=== PATIENT | male | born 1960 | race Two or more races ===

== ENCOUNTER 2018-04-06 02:14 | Inpatient (IN) | payer OTHER ==
[~2018-04-06] VITALS: Ht 177.8 cm; Wt 88.5 kg
[2018-04-06] MEDS ORDERED: LORAZEPAM INJ 2 MG/ML VIAL IVP ONE (02:30)
[2018-04-06] MEDS ORDERED: IV NS 0.9% 1,000 ML BAG IV ONE (02:30)
[2018-04-06] MEDS ORDERED: LORAZEPAM INJ 2 MG/ML VIAL ONE ×3 (02:38→04:17)
[2018-04-06 02:43] LABS: BASOPHILS # (AUTO) 0.1 /CMM (0.0-0.2); BASOPHILS % (AUTO) 0.5 % (0.0-2.0); EOSINOPHILS % (AUTO) 0.1 % (0.0-6.0); HEMATOCRIT 45 % (39-51); HEMOGLOBIN 15.2 g/dL (13.5-17.5); LYMPHOCYTES # (AUTO) 1.7 /CMM (0.8-4.8); LYMPHOCYTES % (AUTO) 13.8 % (20.0-44.0); MEAN CORPUSCULAR HGB CONC 34 g/dl (31.0-36.0); MEAN CORPUSCULAR VOLUME 97 fL (80-96); MONOCYTES # (AUTO) 1.3 /CMM (0.1-1.30); MONOCYTES % (AUTO) 10.4 % (2.0-12.0); NEUTROPHILS # (AUTO) 9.3 /CMM (1.8-8.9); NEUTROPHILS % (AUTO) 75.2 % (43.0-81.0); PLATELET COUNT (AUTO) 248 /CMM (150-450); WHITE BLOOD COUNT (AUTO) 12.4 K/uL (4.3-11.0)
[2018-04-06 02:48] LABS: CALCIUM, SERUM 8.5 mg/dL (8.5-10.1); CREATININE 0.8 mg/dL (0.6-1.3); POTASSIUM 3.3 mmol/L (3.5-5.1)
[2018-04-06 02:55] LABS: ALBUMIN 3.6 g/dL (3.4-5.0); BILIRUBIN,DIRECT 0.2 mg/dL (0.0-0.2); BILIRUBIN,TOTAL 0.6 mg/dL (0.2-1.0); TOTAL PROTEIN, SERUM 7.9 g/dL (6.4-8.2)
--- NOTE | 2018-04-06 02:55 | NUR ---
PT BIB PD. COMP OF 'FOUND INTOXICATED ON THE STREETS". NO SOB NOTED. NO ACUTE DISTRESS AT THIS TIME. PT AOX4. AMBULATORY W,STEADY GAIT. AWAITING MD BYRNES.
[2018-04-06] MEDS ORDERED: IV PREMIX D5 1/2NS + KCL 1,000 ML IV ONE ×2 (03:13→03:45)
[2018-04-06] MEDS ORDERED: POTASSIUM CHLORIDE 20 MEQ TAB.PRT.SR PO ONE ×2 (03:23→03:30)
[2018-04-06] MEDS ORDERED: LORAZEPAM INJ 2 MG/ML VIAL IV ONE ×2 (03:30→04:30)
[2018-04-06] MEDS ORDERED: Magnesium 1GM/D5W 100ML PREMIX 100 ML IV ONE ×2 (03:51→05:03)
[2018-04-06] MEDS: Magnesium 1GM/D5W 100ML PREMIX 100 ML IV SCH ×2 (04:05→05:31)
--- NOTE | 2018-04-06 04:09 | NUR ---
Patient is resting comfortably in bed with eyes closed. Easily aroused. VSS
--- NOTE | 2018-04-06 06:35 | NUR ---
REPORT GIVEN TO EMPERATRIZ HOYT.
--- NOTE | 2018-04-06 07:00 | NUR ---
FLOODPLAIN MANAGER OPENING NOTES RECEIVED PATIENT IN STABLE CONDITION. IN NO APPARENT DISTRESS. BEDSIDE RAILS ARE UPX2. BED IS LOCKED AND LOWERED. CALL LIGHT IS WITHIN REACH. IV LINE IS INTACT AND PATENT. WILL CONTINUE TO MONITOR PATIENT.
[2018-04-06 08:00] VITALS: BP 109/80
[2018-04-06] MEDS ORDERED: DULO60CA45 PO (09:53)
[2018-04-06] MEDS ORDERED: METO200T49 PO (09:53)
[2018-04-06] MEDS ORDERED: METOPROLOL TARTRATE 50 MG TABLET PO SCH (10:47)
[2018-04-06] MEDS ORDERED: DULOXETINE HCL 30 MG CAPSULE.DR PO SCH (10:47)
[2018-04-06] MEDS ORDERED: THIAMINE HCL 100 MG TABLET PO SCH (10:47)
[2018-04-06] MEDS ORDERED: FOLIC ACID 1 MG TABLET PO SCH (10:48)
[2018-04-06] MEDS ORDERED: MULTIVITAMINS,THERAGRAN 1 UDTAB TABLET PO SCH (10:48)
--- NOTE | 2018-04-06 10:54 | NUR ---
Social service consult requested by Dr. Chiu for homelessness and alcohol abuse. Pt. is a 58 year old male who was admitted to [facility] for Alcohol Withdrawal. Pt. was found on the streets intoxicated and was brought to [facility] ER. SW met with pt. bedside. Pt. is alert and oriented x 4. Pt. is still withdrawing and his hands were shaking. Pt. is very pleasant and cooperative with SW. Pt. states he grew up in [place] and moved to [place] with his and kids. Pt. has three girls who he put through college. Pt. then moved to [facility] from [place] with his . 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 Pt. is from his and has an amicable relationship with her and his two daughters. Pt. states he usually drinks beer but started to drink vodka lately. However, yesterday pt. drank a bottle of vodka. Pt. has been to a treatment program called [facility] located at [address] [place] [address]. . Pt. states he did complete the 90 day program there a few weeks ago and recently relapsed. TANYA inquired with pt. if he would like to go to a treatment program again. Pt. stated, "Yes" and asked SW to call Yunior at [facility] . TANYA to follow up and call Yunior. Pt. has no income and has been homeless for the past month. Pt. receives GR and food stamps. Pt. denies suicidal and homicidal ideations and visual/auditory hallucinations at this time. Pt. has no history of psychiatric hospitalizations. TANYA to contact [facility] and speak to Yunior regarding accepting pt. back into their program.
[2018-04-06] MEDS ORDERED: IV D5/0.45 NACL W/20 MEQ KCL 1L IV PRN ×2 (11:00)
[2018-04-06] MEDS ORDERED: ACETAMINOPHEN 325 MG TABLET PO PRN (11:00)
[2018-04-06] MEDS: LORAZEPAM 1 MG TABLET PO PRN ×2 (11:11→14:54)
[2018-04-06] MEDS: CHLORDIAZEPOXIDE HCL 25 MG CAPSULE PO SCH ×2 (11:12→17:12)
[2018-04-06 16:00] VITALS: BP 134/69
--- NOTE | 2018-04-06 18:57 | NUR ---
MS RN CLOSING NOTES PATIENT DISCHARGED IN STABLE CONDITION. NO APPARENT DISTRESS. EXITCARE WAS SIGNED AND PROVIDED TO PARAMEDICS. PATIENT ESCORTED OUT BY [facility]. DISCHARGE PICTURES WERE TAKEN. REPORT GIVEN TO [facility]. BELONGINGS WERE CHECKED AND PROVIDED TO PATIENT.
== END 2018-04-06 18:50 | disposition short-term general hospital (02) | DRG 775 ==
LOC: ER 02:19 → TELE 06:23 → MED 08:40
PROVIDERS: ADMIT Internal Medicine; ATTEND Internal Medicine
DX: F10.239 Alcohol dependence with withdrawal, unspecified (principal); E11.9 Type 2 diabetes mellitus without complications; E87.6 Hypokalemia; I10 Essential (primary) hypertension; R74.0 Nonspecific elevation of levels of transaminase and lactic acid dehydrogenase [LDH]; Z59.0 Homelessness; Y90.8 Blood alcohol level of 240 mg/100 ml or more; F41.9 Anxiety disorder, unspecified; Z72.0 Tobacco use
CPT/HCPCS: 36415; 71045-TC; 80048-TC; 80076-TC; 83735-TC; 85025-TC; G0378; G0480; J2060; J3475; J3480; J3490; J7030

== ENCOUNTER 2020-01-18 16:09 | Emergency (ER) | payer OTHER ==
[~2020-01-18] VITALS: Ht 175.3 cm; Wt 87.5 kg
[~2020-01-18 16:09] MED LIST: DULO60CA45 PO; METO200T49 PO
--- NOTE | 2020-01-18 16:25 | NUR ---
PT BIBRA60, IN CUSTODY C/O WEAKNESS SINCE YESTERDAY, NAUSEA AND VOMITING. VS CHECKED. AWAITING MD BYRNES.
[2020-01-18] MEDS ORDERED: LORAZEPAM INJ 2 MG/ML VIAL ONE (16:37)
[2020-01-18] MEDS ORDERED: PANTOPRAZOLE 40 MG VIAL ONE (16:37)
[2020-01-18] MEDS ORDERED: ONDANSETRON HCL/PF 4 MG/2 ML VIAL ONE (16:37)
[2020-01-18 16:57] LABS: HEMOGLOBIN 15.5 g/dL (13.5-17.5); LYMPHOCYTES # (AUTO) 0.6 /CMM (0.8-4.8); MEAN CORPUSCULAR HGB CONC 34 g/dl (31.0-36.0)
[2020-01-18] MEDS ORDERED: LORAZEPAM INJ 2 MG/ML VIAL IV ONE (17:00)
[2020-01-18] MEDS ORDERED: IV NS 0.9% 1,000 ML BAG IV ONE ×2 (17:00→18:30)
[2020-01-18] MEDS ORDERED: PANTOPRAZOLE 40 MG VIAL IV ONE (17:00)
[2020-01-18] MEDS ORDERED: ONDANSETRON HCL/PF 4 MG/2 ML VIAL IVP ONE (17:00)
[2020-01-18 17:03] LABS: CALCIUM, SERUM 9.5 mg/dL (8.5-10.1); CARBON DIOXIDE 20 mmol/L (21-32); CHLORIDE 94 mmol/L (98-107); CREATININE 1.1 mg/dL (0.6-1.3); GLUCOSE 138 mg/dL (74-106); SODIUM SERUM 130 mmol/L (136-145); UREA NITROGEN, BLOOD 12 mg/dL (7-18)
--- NOTE | 2020-01-18 17:04 | NUR ---
pt out to ct
[2020-01-18 17:07] LABS: BASOPHILS # (AUTO) 0.2 /CMM (0.0-0.2); BASOPHILS % (AUTO) 0.9 % (0.0-2.0); EOSINOPHILS % (AUTO) 0.3 % (0.0-6.0); HEMATOCRIT 46 % (39-51); LYMPHOCYTES % (AUTO) 3.6 % (20.0-44.0); MEAN CORPUSCULAR VOLUME 98 fL (80-96); MONOCYTES # (AUTO) 1.5 /CMM (0.1-1.30); MONOCYTES % (AUTO) 8.5 % (2.0-12.0); NEUTROPHILS # (AUTO) 15.4 /CMM (1.8-8.9); NEUTROPHILS % (AUTO) 86.7 % (43.0-81.0); PLATELET COUNT (AUTO) 195 /CMM (150-450); RED BLOOD CELL COUNT(AUTO) 4.67 MIL/uL (4.5-6.0); WHITE BLOOD COUNT (AUTO) 17.7 K/uL (4.3-11.0)
--- NOTE | 2020-01-18 17:07 | NUR ---
bs checked: 144 dr james made aware.
[2020-01-18 17:09] LABS: ALANINE AMINOTRANSFERASE 43 U/L (12-78); ALBUMIN 3.7 g/dL (3.4-5.0); ALKALINE PHOSPHATASE 77 U/L (46-116); ASPARTATE AMINOTRANSFERASE 60 U/L (15-37); BILIRUBIN,DIRECT 0.4 mg/dL (0.0-0.2); BILIRUBIN,TOTAL 1.1 mg/dL (0.2-1.0); LIPASE 100 U/L (73-393); TOTAL PROTEIN, SERUM 8.1 g/dL (6.4-8.2)
[2020-01-18] MEDS ORDERED: Magnesium 1GM/D5W 100ML PREMIX 200 ML IV ONE (17:30)
--- NOTE | 2020-01-18 17:37 | NUR ---
pt unable to pee yet. fluids are running. given water
[2020-01-18] MEDS ORDERED: Magnesium 1GM/D5W 100ML PREMIX 100 ML IV ONE (17:46)
[2020-01-18 17:58] LABS: BAND % (MANUAL) 7 % (0.0-5.0); LYMPHOCYTES % (MANUAL) 3 % (16-48); MONOCYTES % (MANUAL) 8 % (0-11.0); NEUTROPHILS % (MANUAL) 82 (42-76)
--- NOTE | 2020-01-18 18:10 | NUR ---
pt still unable to provide urine specimen. still states that he still doesnt feel like urinating.
--- NOTE | 2020-01-18 18:33 | NUR ---
urine collected sent to lab
[2020-01-18 18:38] LABS: BILIRUBIN,URINE SMALL (NEGATIVE); BLOOD, URINE Small Ery/uL (NEGATIVE); COLOR,URINE YELLOW (YELLOW); LEUKOCYTE ESTERASE ,URINE Negative (NEGATIVE); NITRITE, URINE Negative (NEGATIVE); PROTEIN,URINE 100 mg/dl (NEGATIVE); UGLUCOSE Negative (NEGATIVE); UROBILINOGEN,URINE 0.2 EU/dL (0.2)
[2020-01-18] MEDS ORDERED: CHLORDIAZEPOXIDE HCL 25 MG CAPSULE PO ONE (19:00)
[2020-01-18] MEDS ORDERED: CHLORDIAZEPOXIDE HCL 25 MG CAPSULE ONE (19:08)
[2020-01-18 19:11] LABS: BACTERIA,URINE Few /HPF (None Seen); MUCUS,URINE Moderate /LPF (None Seen); SQUAMOUS EPITHELIAL CELL,UR Few /HPF (None Seen); WBC,URINE 0-2 /HPF (0-3)
--- NOTE | 2020-01-18 19:52 | NUR ---
PT is medically stable for d/c. IV removed. Catheter intact and site benign. Pressure and 4x4 applied to site. No bleeding noted.Patient discharged to [facility] in custody in stable condition. Rx and Written and verbal after care instructions given. Patient verbalizes understanding of instruction.
[2020-01-18 19:53] VITALS: BP 138/85
== END 2020-01-18 19:53 ==
LOC: ER 16:39
DX: F10.239 Alcohol dependence with withdrawal, unspecified (principal); R11.2 Nausea with vomiting, unspecified; E86.0 Dehydration; R42 Dizziness and giddiness; E87.1 Hypo-osmolality and hyponatremia; E83.42 Hypomagnesemia; D72.829 Elevated white blood cell count, unspecified; D75.89 Other specified diseases of blood and blood-forming organs; E80.7 Disorder of bilirubin metabolism, unspecified; R80.9 Proteinuria, unspecified; R82.4 Acetonuria; R31.9 Hematuria, unspecified; R00.0 Tachycardia, unspecified; I10 Essential (primary) hypertension; Y90.9 Presence of alcohol in blood, level not specified; Z59.0 Homelessness; Z79.899 Other long term (current) drug therapy; Z72.0 Tobacco use; Z02.89 Encounter for other administrative examinations
CPT/HCPCS: 36415; 70450; 71045; 80048; 80076; 80307; 81001; 83690; 83735; 84484; 85007; 85025; 93005; 96361; 96365; 96375; 99285; C9113; J2060; J2405; J3475; J7030 ×2

== ENCOUNTER 2020-07-31 08:52 | Emergency (ER) | payer OTHER ==
[~2020-07-31] VITALS: Ht 177.8 cm; Wt 83.9 kg
--- NOTE | 2020-07-31 08:52 | NUR ---
PT BIBRA [address] C/O ALCOHOL WITHDRAWAL. LAST ALCOHOL INTAKE LAST NIGHT. PT IS AAOX4, NOT IN RESPIRATORY DISTRESS, HOOKED TO PHARMACIST AIDE, KEPT RESTED AND COMFORTABLE. WILL CONTINUE TO MONITOR.
--- NOTE | 2020-07-31 09:18 | NUR ---
URINE SPECIMEN COLLECTED AND SENT TO LAB.
--- NOTE | 2020-07-31 09:56 | NUR ---
PT SEEN AND EXAMINED BY DR. GOLDMAN.
[2020-07-31] MEDS ORDERED: CHLORDIAZEPOXIDE HCL 25 MG CAPSULE ONE (09:59)
[2020-07-31] MEDS ORDERED: CHLORDIAZEPOXIDE HCL 25 MG CAPSULE PO ONE (10:00)
--- NOTE | 2020-07-31 10:01 | NUR ---
ER PHLEB AT BEDSIDE FOR BLOOD DRAW.
[2020-07-31 10:13] LABS: BASOPHILS % (AUTO) 0.5 % (0.0-2.0); EOSINOPHILS % (AUTO) 0.2 % (0.0-6.0); HEMATOCRIT 42 % (39-51); HEMOGLOBIN 14.3 g/dL (13.5-17.5); LYMPHOCYTES # (AUTO) 0.9 /CMM (0.8-4.8); LYMPHOCYTES % (AUTO) 9.6 % (20.0-44.0); MEAN CORPUSCULAR HGB CONC 34 g/dl (31.0-36.0); MEAN CORPUSCULAR VOLUME 101 fL (80-96); MONOCYTES # (AUTO) 0.6 /CMM (0.1-1.30); MONOCYTES % (AUTO) 6.1 % (2.0-12.0); NEUTROPHILS # (AUTO) 7.9 /CMM (1.8-8.9); NEUTROPHILS % (AUTO) 83.6 % (43.0-81.0); PLATELET COUNT (AUTO) 270 /CMM (150-450); RED BLOOD CELL COUNT(AUTO) 4.15 MIL/uL (4.5-6.0); WHITE BLOOD COUNT (AUTO) 9.5 K/uL (4.3-11.0)
[2020-07-31 10:20] LABS: CALCIUM, SERUM 8.1 mg/dL (8.5-10.1); CARBON DIOXIDE 24 mmol/L (21-32); CHLORIDE 97 mmol/L (98-107); CREATININE 0.9 mg/dL (0.6-1.3); GLUCOSE 227 mg/dL (74-106); SODIUM SERUM 134 mmol/L (136-145); UREA NITROGEN, BLOOD 11 mg/dL (7-18)
[2020-07-31 10:25] LABS: ALANINE AMINOTRANSFERASE 91 U/L (12-78); ALBUMIN 3.2 g/dL (3.4-5.0); ALCOHOL, BLOOD 172 mg/dL (0-0); ALKALINE PHOSPHATASE 84 U/L (46-116); ASPARTATE AMINOTRANSFERASE 85 U/L (15-37); BILIRUBIN,DIRECT 0.1 mg/dL (0.0-0.2); BILIRUBIN,TOTAL 0.3 mg/dL (0.2-1.0); TOTAL PROTEIN, SERUM 7.2 g/dL (6.4-8.2)
[2020-07-31 10:29] LABS: ACETAMINOPHEN < 2 ug/ml (10-30)
--- NOTE | 2020-07-31 10:30 | NUR ---
"SS consult: SS Consult requested for homelessness and ETOH withdrawal. The pt. is a 60-year old male. SW met with pt. bedside. The pt. is A&O X 4 and makes good eye contact. Pt. appears unkempt and sunburned. Pt.s speech is WNL. Pt.s mood is depressed. Pt. shaking due to Alcohol withdrawal. SW completed ETOH brief intervention with pt. Pt. stated that ETOH use has affected his relationships, employment and his health. pt. stated he wants to quit using alcohol. SW provided pt. with emotional support and encouraged pt. to seek Treatment for ETOH use. SW provided pt. with addiction resources. Pt. states he has had failed attempts in rehab previously. Pt. stated he will seek ETOH treatment with resources provided when ready. TANYA assessed pt.s living situation. Pt. stated he has been experiencing homelessness since his kicked him out of the home, for ETOH abuse. Pt. states he has been sleeping outside of a evangelical. Pt. states he receives Doni [employer]. Per pt. he sees a psychiatrist, Dr. Franc Oliver in [place] who prescribes him with Effexor, Buspar, Trazedone for depression. pt. denies SI/HI and denies hallucinations. SW provided pt. with mental health resources & pt. accepted them. Pt. signed homeless waiver and it was placed in the pt.s chart. SW provided pt. with homeless resources and pt. accepted them. Substance Abuse resources provided included: [facility] Substance Abuse Self-Helpline ([facility]) ; [facility]LP 18226 [facility]. [place] [address] ; [facility] [address]60 [facility] [address] ; [facility] Rehabilitation Program [address] [place] [address] ; [facility] [address] [facility] [address] ; [facility] 2447 [facility] [place] [address] ; [facility] [address] [facility] [address] ; [facility] Substance Abuse Helpline(SAS)-[facility] ; [facility] ; Cidar [place]; [facility]; [facility] [place]; [facility] Javid Fountain; [facility] [place]; [facility]; [facility] [place]; [facility] [place]; Alcoholics Anonymous -SFV; Od-Gdqp-Ctkizmg ; Marijuana Anonymous -SFV; Narcotics Anonymous www.na.org; Year-round shelters: [facility] [place] [address] [place], [place] [phone] ; [facility] [place] [address] [place] [address]; [facility] Nanhmql5055 [facility] [address] Winter Shelters: Gerry Chilmark [place] Provider: Jose of [place] Address: [address] [facility] Cent[facility] Marie [place], [address] # of Beds: 47 Population Served: [facility] 6 | [facility] Melanie Alvarez [place] Provider: Home at Last Address: [address], [address] # of Beds: 66 Population Served: [facility] TheSquareFoot [place] Provider: First to Serve Address: [address] [facility], [address] # of Beds: 56 Population Served: [facility] Truman Du [place] Provider: /Ms. [facility] Address: [address] [facility], [address] # of Beds: 49 Population Served: Coed SPA 8 | [facility] Provider: First to Serve Address: [address] [facility]. Debbie Lisa # of Beds: 37 Population Served: Beronica Hygiene: [facility]: [address] [address] Marie. [place] ; [place] [facility] [address] [facility] Reseda ; [facility] [address] [place] . Food Resources: [place] [facility] at [facility]- [address] [place]; Meet Each Need with Dignity ([facility]) [address] [place]; [facility] Food Pantry 8965 [facility]; [facility] 8979 [facility]. Mental Health resources provided: [facility] [address] [place], [place] [id number] ; [facility] 18512 [facility] [address], [place], [place] [id number] ; [place] Soraya [facility] [address] Rosana Lira DrHolloway, [place] [phone] ; [facility] [address] [place], [place] [address] Healthcare Clinics: [facility] 6551 [facility], [address] [place]. [place] ; [facility] [address] [facility] [address] [place] [address]; [facility] Health [place] 13344 [facility]. [place] [phone] Counseling--Outpatient [facility] [place] [facility] 44[address] [facility], [facility] A [place], [place] [id number] (Specializes in in-depth psychotherapy for emotional distress: anxiety, depression, interpersonal conflicts, life transitions, childhood abuse) [facility] [address] [place] [address] (Assist with solving problem marital difficulties, separation & divorce, aging parents, & grief, chronic & terminal illness) [facility] [address] [place] [address] (Deal with loss & grief, anxiety, marital difficulties) Homebound/Mental Health Services [address]7945 [facility], [address] [place], [place] [address] (Provide in-home mental services to people who are incapable of leaving their homes) Organization for Needs of the Elderly Senior Service/Resource Center [address] Renzo [facility] [place] [address] [facility] 6514 [place] [address] PSYCHIATRIC OUTPATIENT SERVICES [facility] Partial Hospitalization and Intensive Outpatient Program (Managed Care and [place] Only)11479 [facility] CA[facility]. [facility] [phone] [facility] Partial Hospitalization and Outpatient Qxejdcy48127 [facility]. [address] [place], [place] [phone] [facility] Partial Hospitalization and Outpatient Clokoat6796 [facility]. [place], [place] [phone] [facility] Nnl72413 [facility]. [address] [place], [place] [phone] [facility] Александр Partial Hospitalization and Outpatient Hcktdvb40549 Emelita [facility] Javid FountainSIERRA [place]IST[place], [phone] "
[2020-07-31 11:40] LABS: BILIRUBIN,URINE Negative (NEGATIVE); COLOR,URINE YELLOW (YELLOW); LEUKOCYTE ESTERASE ,URINE Negative (NEGATIVE); NITRITE, URINE Negative (NEGATIVE); PH,URINE 5.5 (5.0-8.0); PROTEIN,URINE Trace mg/dl (NEGATIVE); UGLUCOSE 100 MG/DL mg/dL (NEGATIVE); UROBILINOGEN,URINE 0.2 EU/dL (0.2)
[2020-07-31] MEDS ORDERED: CHLO25CA22 PO (11:41)
--- NOTE | 2020-07-31 11:42 | NUR ---
PT STATED HE FEELS SUICIDAL AND WANTS TO BE ADMITTED AT [facility]. DR.WILLIAMS GRAYSON.
[2020-07-31 11:52] LABS: BACTERIA,URINE Few /HPF (None Seen); MUCUS,URINE Few /LPF (None Seen); SQUAMOUS EPITHELIAL CELL,UR Moderate /HPF (None Seen); URINE AMORPHOUS URATE Moderate /HPF (None Seen)
[2020-07-31] MEDS ORDERED: LORAZEPAM 1 MG TABLET ONE ×2 (13:23→15:27)
[2020-07-31] MEDS ORDERED: LORAZEPAM 1 MG TABLET PO ONE ×2 (13:30→15:30)
--- NOTE | 2020-07-31 16:12 | NUR ---
Patient's face sheet, toxicology report, COVID test results, ED physician's note, and ED summary report faxed to Noah, Merchandising Team Lead at [facility], fax # [phone], tel # [phone]. Pending review for voluntary psychiatric admission to [facility].
--- NOTE | 2020-07-31 18:16 | NUR ---
CALL FROM [facility], ACCEPTED AFTER MEDICALLY CLEARED
--- NOTE | 2020-07-31 18:55 | NUR ---
RECIEVED A CALL FROM EVER FROM [facility]. NEED NEGATIVE COVID RESULT BEFORE ACCEPTING.
--- NOTE | 2020-07-31 19:04 | NUR ---
FAXED COVID RESULT TO [facility].
--- NOTE | 2020-07-31 22:23 | NUR ---
TRANSFER INFORMATION: PT ACCEPTED AT [facility] MAIKEL HEATH ACCEPTING MD ZELAYA PHONE NUMBER FOR REPORT
--- NOTE | 2020-07-31 22:27 | NUR ---
Edda taylor in [facility] - 07/31/20 at 2232 by MELYSSA [id number] RES#[id number]
--- NOTE | 2020-07-31 22:32 | NUR ---
[id number] RES#[id number]
--- NOTE | 2020-07-31 23:03 | NUR ---
EMVF-TWL-SCP CALLED REGARDING TRANSPORT ETA 0130.
--- NOTE | 2020-07-31 23:26 | NUR ---
REPORT CALLED TO ATUL BOJORQUEZ.
--- NOTE | 2020-08-01 02:43 | NUR ---
PER CALLJULIANNE, THEIR SYSTEM IS DOWN AND ARE NOT ABLE TO CHECK STATUS OF LATE AMBULANCE NOR CAN THEY CHECK WHICH AMBULANCE COMPANY WILL BE TRANSPORTING THIS PATIENT.
--- NOTE | 2020-08-01 03:07 | NUR ---
PT ASLEEP, NO ACUTE DISTRESS NOTED, RESP EVEN AND UNLABORED. CALL LIGHT WIHTIN REACH. WILL CONTINUE TO MONITOR PT. 1:1 SITTER AT BEDSIDE FOR PT SAFETY.
--- NOTE | 2020-08-01 03:10 | NUR ---
TKUV-KBD-DGN CALLED TO F/O WITH TRANSPORT, PER ZFUB-EVU-OOX PRIMER SUPERVISOR SYSTEM IS DOWN AND UNABLE TO CHECK RESERVATION AT THIS TIME.
--- NOTE | 2020-08-01 04:15 | NUR ---
PER FYFP-WJW-HIS CAP AND STUD MACHINE OPERATOR SYSTEM IS STILL DOWN UNABLE TO LOCATE VENDOR AND WILL CALL BACK SHORTLY.
--- NOTE | 2020-08-01 05:00 | NUR ---
CALLED LYUK-LKF-YLH SPOKE TO PETROPHYSICAL ENGINEER SYSTEM REMAINS DOWN AND UNABLE TO LOCATE VENDOR AND WILL CALL BACK SHORTLY.
--- NOTE | 2020-08-01 05:16 | NUR ---
DKNY-UHP-UXL TRANSPORT ([facility]) ETA [phone]
--- NOTE | 2020-08-01 08:09 | NUR ---
THE PATIENT IS ALERT AND ORIENTED X3. DENIES PAIN. IN ROOM AIR AND DENIES SOB. RESPIRATION REGULAR AND UNLABORED. THE PATIENT DISCHARGED FROM ER GOING TO [facility]. THE PATIENT LEFT ER IN STABLE CONDITION.
[2020-08-01 08:13] VITALS: BP 133/82
== END 2020-08-01 08:13 ==
LOC: ER 08:55
DX: F10.239 Alcohol dependence with withdrawal, unspecified (principal); Y90.6 Blood alcohol level of 120-199 mg/100 ml; R45.851 Suicidal ideations; Z81.8 Family history of other mental and behavioral disorders; Z20.822 Contact with and (suspected) exposure to COVID-19; R73.9 Hyperglycemia, unspecified; I10 Essential (primary) hypertension
CPT/HCPCS: 36415; 80048; 80076; 80143; 80307; 80320 ×2; 81001; 82962; 85025; 87426; 99285; C9803; G0480

== ENCOUNTER 2020-08-13 12:39 | Emergency (ER) | payer OTHER ==
[~2020-08-13] VITALS: Ht 177.8 cm; Wt 83.0 kg
[~2020-08-13 12:39] MED LIST changes: +CHLO25CA22 PO
--- NOTE | 2020-08-13 12:39 | NUR ---
PT BIBRA [address] C/O ETOH AND LEFT SIDE FOREHEAD ABRASION. PT IS AAOX3, NOT IN RESPIRATORY DISTRESS, V/S STABLE, KEPT RESTED AND COMFORTABLE. WILL CONTINUE TO MONITOR.
--- NOTE | 2020-08-13 12:50 | NUR ---
AT BEDSIDE FOR EVAL.
[2020-08-13] MEDS ORDERED: TDAP [DIPH/PERTUSSIS/TET] 0.5 ML VIAL IM ONE ×2 (12:57→13:00)
--- NOTE | 2020-08-13 13:06 | NUR ---
PT IS WHEELED TO CT SCAN VIA [facility].
--- NOTE | 2020-08-13 14:20 | NUR ---
"Social Media Senior Associate consult: dining services manager consult requested for homelessness and ETOH use. Patient is a 60-year-old, male. SW met with patient at his bedside in the emergency department. Patient was alert and oriented x4. Patient presented disheveled and malodorous. Per chart, patient was brought in by ambulance on 08/13/20 for ETOH use and presented with a left eye abrasion due to a fall. Patient stated that he is currently homeless and has been homeless on and off for some time. Patient provided SW with his contact information, . Patient stated that he is currently receiving food stamps. SW asked patient if he has access to social support and patient stated that he has some support from his , Stacy, and his brothers. SW asked patient about his history of substance use and patient stated that he has a history of ETOH use and reported a history of drinking around one bottle of alcohol per day. Patient reported that he drank alcohol this morning as a result of an alcohol withdrawal. Patient denied history of drug use. Per toxicology report, patient is positive for benzodiazepine. SW assessed patients history of mental illness and patient stated that he has a history of Depression. Patient stated that he currently takes Effexor, Buspar and Trazodone. Patient denied suicidal or homicidal ideation. SW offered patient homeless and substance use resources. Patient accepted the resources and thanked SW. Patient signed homeless waiver and SW filed waiver in the patients chart. SW discussed discharge plans with the patient and patient stated that he plans to return to his prior living arrangement on the street. Patient reported that he can use public transportation. PLAN: Patient plans to return to his prior living arrangement on the street. No further SS intervention at this time, however, SW will remain available as needed. RESOURCES: Year-round shelters: [facility] [address] [place] [address] ; [facility] [place] [address] [place] [address]; [facility] Madmitn3384 [facility] [address] SPA 4 | [facility] Provider: First to Serve Address: [address] [place] [address] # of Beds: 48 Population Served: [facility] Provider: First to Serve Address: [address] [facility], [address] # of Beds: 73 Population Served: Shubhamd [facility] 6 | [facility] Provider: Home at Last Address: 56335 [facility], [address] # of Beds: 63 Population Served: Sh[facility] 3 | [facility] Provider: Volunteers of [place] Address: [address] [facility], [address] # of Beds: 75 Population Served: Shubhamd SPA 8 | [facility] Provider: Volunteers of [place] Address: [address] [facility], [address] # of Beds: 80 Population Served: Sh[facility]d [facility] 1 | [facility] Provider: Volunteers of [place] Address: [address] [place] [address], [facility] # of Beds: 85 Population Served: [facility] 2 | [facility] Provider: [facility] Address: Confidential (please call for location) # of Beds: 52 Population Served: Beronica [facility] 4 | [facility] Provider: [facility] Address: 566 [facility] [place], [address] # of Beds: 49 Population Served: Beronica [facility] Provider: First To Serve Address: [address] [facility], [address] # of Beds: 27 Population Served: Beronica Hygiene: [facility]: [address] Wilbert [place] ; [facility] [address] [facility] ; [facility] 0938 Javid Hinojosa . Food Resources: [place] Food Pant[facility] at [facility]- [address] [place]; Meet Each Need with Dignity (MEND) [address]207 [facility]; [facility] Food Pantry 8946 [facility]; [facility] 0000 [place] jakub SolomonMorris[place]. Mental Health resources provided: [facility] [address] [place] [address] ; [facility] Health [place], Inc. [address]10 [facility] [address], [place] [address] ; [facility] [address] [facility] [place], [place] [phone] ; [facility] [place], [place] [id number] Healthcare Clinics: [facility] 6551 [facility], [address] [place]. [place] ; [facility] 6801 [facility] [address] [place] [address]; [facility] [address] [facility] [place] [address] [phone] Counseling--Outpatient [facility] 44[address] [facility], [place] [address] (Specializes in in-depth psychotherapy for emotional distress: anxiety, depression, interpersonal conflicts, life transitions, childhood abuse) PSYCHIATRIC OUTPATIENT SERVICES [facility] Partial Hospitalization and Intensive Outpatient Program (Managed Care and [place] Only) [address] [facility] [address] [facility] Partial Hospitalization and Outpatient Program [address] [facility]. [address] [place], [place] [phone] [facility] Partial Hospitalization and Outpatient Program 4911 [facility]. [place], [place] [phone] [facility] [address] [facility]. [address] [place], [place] [phone] [facility] Partial Hospitalization and Outpatient Program [address] [place], [place] [phone] Substance use resources provided included: [facility] Substance Abuse Self-Helpline (SAS) ; CRI -HELP 36275 [facility]. [place] [address] ; [facility] [address] [facility] [address] ; [facility]ically [facility] 400 [facility] [id number] ; [facility] 4940 [facility] [address] ; [facility] 909 [facility] [phone] ; [facility] [place]; Cri-Help [place]; [place] [facility] Darleenw. [facility]. [facility]; Alcoholics Anonymous -SFV"
--- NOTE | 2020-08-13 15:28 | NUR ---
PT IS AMBULATORY W/ STEADY GAIT. REQUESTING TO LEAVE ED DEPARTMENT. REFUSING TO SIGN ACI AND HOMELESS WAIVER. DR DELACRUZ AWARE.
[2020-08-13 15:32] VITALS: BP 130/86
== END 2020-08-13 15:32 | disposition home or self-care (01) ==
LOC: ER 12:44
DX: S00.212A Abrasion of left eyelid and periocular area, initial encounter (principal); F10.129 Alcohol abuse with intoxication, unspecified; I10 Essential (primary) hypertension; F17.200 Nicotine dependence, unspecified, uncomplicated; Z60.2 Problems related to living alone; Z79.899 Other long term (current) drug therapy; Y90.9 Presence of alcohol in blood, level not specified; W19.XXXA Unspecified fall, initial encounter; Y93.89 Activity, other specified; Y92.89 Other specified places as the place of occurrence of the external cause; Y99.8 Other external cause status
CPT/HCPCS: 70450-TC; 72125-TC; 90715

== ENCOUNTER 2020-08-14 18:50 | Emergency (ER) | payer OTHER ==
[~2020-08-14] VITALS: Ht 177.8 cm; Wt 83.0 kg
--- NOTE | 2020-08-14 20:09 | NUR ---
PT AAOX4. BIBSELF C.O ALCOHOL WITHDRAWL. REPORTS LAST DRINK WAS THIS MORNING. PLACED IN BED 13 ON MASTICATOR AND PULSE OX. NOTED TO BE TACHYCARDIC. ER PA AT BEDSIDE FOR EVAL. AWAITING ORDERS. WILL CONTINUE TO MONITOR
[2020-08-14] MEDS ORDERED: LORAZEPAM INJ 2 MG/ML VIAL IV ONE (20:30)
[2020-08-14] MEDS ORDERED: MULTIVITAMINS,THERAGRAN 1 UDTAB TABLET PO ONE (20:30)
[2020-08-14] MEDS ORDERED: IV NS 0.9% 1,000 ML BAG IV ONE (20:30)
[2020-08-14] MEDS ORDERED: FOLIC ACID 1 MG TABLET PO ONE (20:30)
[2020-08-14] MEDS ORDERED: THIAMINE HCL 100 MG TABLET PO ONE (20:30)
[2020-08-14 20:36] LABS: BASOPHILS # (AUTO) 0.1 /CMM (0.0-0.2); BASOPHILS % (AUTO) 0.6 % (0.0-2.0); EOSINOPHILS % (AUTO) 0.1 % (0.0-6.0); HEMATOCRIT 45 % (39-51); HEMOGLOBIN 15.5 g/dL (13.5-17.5); LYMPHOCYTES # (AUTO) 1.8 /CMM (0.8-4.8); LYMPHOCYTES % (AUTO) 12.7 % (20.0-44.0); MEAN CORPUSCULAR HGB CONC 35 g/dl (31.0-36.0); MEAN CORPUSCULAR VOLUME 99 fL (80-96); MONOCYTES # (AUTO) 1.7 /CMM (0.1-1.30); MONOCYTES % (AUTO) 11.7 % (2.0-12.0); NEUTROPHILS # (AUTO) 10.6 /CMM (1.8-8.9); NEUTROPHILS % (AUTO) 74.9 % (43.0-81.0); PLATELET COUNT (AUTO) 277 /CMM (150-450); RED BLOOD CELL COUNT(AUTO) 4.51 MIL/uL (4.5-6.0); WHITE BLOOD COUNT (AUTO) 14.1 K/uL (4.3-11.0)
[2020-08-14] MEDS ORDERED: LORAZEPAM INJ 2 MG/ML VIAL ONE (20:43)
[2020-08-14] MEDS ORDERED: MULTIVIT W/MINERALS 1 TAB TABLET ONE (21:00)
[2020-08-14] MEDS ORDERED: FOLIC ACID 1 MG TABLET ONE (21:00)
[2020-08-14] MEDS ORDERED: THIAMINE HCL 100 MG TABLET ONE (21:00)
--- NOTE | 2020-08-14 21:15 | NUR ---
URINE WAS COLLECTED, SENT TO LAB.
[2020-08-14 21:24] LABS: CALCIUM, SERUM 8.5 mg/dL (8.5-10.1); CARBON DIOXIDE 21 mmol/L (21-32); CHLORIDE 95 mmol/L (98-107); GLUCOSE 117 mg/dL (74-106); POTASSIUM 3.2 mmol/L (3.5-5.1); SODIUM SERUM 138 mmol/L (136-145); UREA NITROGEN, BLOOD 8 mg/dL (7-18)
--- NOTE | 2020-08-14 21:25 | NUR ---
URINE SAMPLE COLLECTED AND SENT TO LAB
[2020-08-14] MEDS ORDERED: Magnesium 1GM/D5W 100ML PREMIX 100 ML IV ONE (21:29)
[2020-08-14 21:30] LABS: ALANINE AMINOTRANSFERASE 68 U/L (12-78); ALBUMIN 3.6 g/dL (3.4-5.0); ALCOHOL, BLOOD 269 mg/dL (0-0); ALKALINE PHOSPHATASE 82 U/L (46-116); ASPARTATE AMINOTRANSFERASE 73 U/L (15-37); BILIRUBIN,DIRECT 0.3 mg/dL (0.0-0.2); TOTAL PROTEIN, SERUM 7.6 g/dL (6.4-8.2)
[2020-08-14] MEDS ORDERED: Magnesium 1 GM/2 ML VIAL IV ONE (21:30)
[2020-08-14] MEDS ORDERED: POTASSIUM CHLORIDE 20 MEQ TAB.PRT.SR PO ONE ×2 (21:38→22:00)
[2020-08-14 21:49] LABS: ACETAMINOPHEN < 0 ug/ml (10-30)
[2020-08-14 21:51] LABS: BILIRUBIN,URINE NEGATIVE (NEGATIVE); COLOR,URINE YELLOW (YELLOW); LEUKOCYTE ESTERASE ,URINE TRACE (NEGATIVE); NITRITE, URINE NEGATIVE (NEGATIVE); PROTEIN,URINE 30 mg/dl (NEGATIVE); UGLUCOSE NEGATIVE (NEGATIVE); UROBILINOGEN,URINE 0.2 EU/dL (0.2)
[2020-08-14 22:03] LABS: BACTERIA,URINE None seen /HPF (None Seen); MUCUS,URINE Few /LPF (None Seen); RBC,URINE 0-2 /HPF (0-2); SQUAMOUS EPITHELIAL CELL,UR Few /HPF (None Seen); URINE AMORPHOUS URATE Few /HPF (None Seen)
[2020-08-15] MEDS ORDERED: LORAZEPAM INJ 2 MG/ML VIAL ONE (01:56)
[2020-08-15] MEDS ORDERED: LORAZEPAM INJ 2 MG/ML VIAL IV ONE (02:00)
[2020-08-15] MEDS ORDERED: CHLO25CA22 PO ×3 (05:44→23:16)
--- NOTE | 2020-08-15 06:00 | NUR ---
Patient discharged to home in stable condition. Written and verbal after care instructions given. Patient verbalizes understanding of instruction and RX. Pt ambulated with steady gait. vss.
[2020-08-15 06:01] VITALS: BP 131/73
[2020-08-15] MEDS ORDERED: VENL150C58 PO (17:03)
[2020-08-15] MEDS ORDERED: TRAZ-257 MT (17:03)
[2020-08-15] MEDS ORDERED: BUSP15TA3 PO (17:03)
== END 2020-08-15 06:01 | disposition home or self-care (01) ==
LOC: ER 18:53
DX: F10.229 Alcohol dependence with intoxication, unspecified (principal); Y90.7 Blood alcohol level of 200-239 mg/100 ml; Z20.822 Contact with and (suspected) exposure to COVID-19; F32.9 Major depressive disorder, single episode, unspecified; Z59.0 Homelessness; I10 Essential (primary) hypertension; D72.829 Elevated white blood cell count, unspecified; E87.6 Hypokalemia; E83.42 Hypomagnesemia
CPT/HCPCS: 36415; 80048; 80076; 80143; 80307; 80320; 81001; 83735; 84484; 85025; 87426; 93005; 96361; 96374; 96375; 96376; 99285; C9803; J2060 ×2; J3475; G0480

== ENCOUNTER 2020-08-15 16:32 | Emergency (ER) | payer OTHER ==
[~2020-08-15] VITALS: Ht 177.8 cm; Wt 82.6 kg
--- NOTE | 2020-08-15 16:50 | NUR ---
THE PATIENT BIBS WITH C/O SUICIDAL IDEATION, NO PLAN, WANTS TO GO TO [facility]. DENIES HI. IN ROOM AIR AND DENIES SOB. RESPIRATION REGULAR AND UNLABORED. WILL CONTINUE TO MONITOR THE PATIENT.
[2020-08-15] MEDS ORDERED: LORAZEPAM INJ 2 MG/ML VIAL ONE ×2 (16:56→17:50)
[2020-08-15 16:59] LABS: BASOPHILS % (AUTO) 0.2 % (0.0-2.0); EOSINOPHILS % (AUTO) 0.1 % (0.0-6.0); HEMATOCRIT 39 % (39-51); HEMOGLOBIN 13.4 g/dL (13.5-17.5); LYMPHOCYTES # (AUTO) 1.3 /CMM (0.8-4.8); LYMPHOCYTES % (AUTO) 11.4 % (20.0-44.0); MEAN CORPUSCULAR HGB CONC 35 g/dl (31.0-36.0); MEAN CORPUSCULAR VOLUME 99 fL (80-96); MONOCYTES # (AUTO) 1.3 /CMM (0.1-1.30); MONOCYTES % (AUTO) 11.4 % (2.0-12.0); NEUTROPHILS # (AUTO) 8.8 /CMM (1.8-8.9); NEUTROPHILS % (AUTO) 76.9 % (43.0-81.0); PLATELET COUNT (AUTO) 237 /CMM (150-450); WHITE BLOOD COUNT (AUTO) 11.4 K/uL (4.3-11.0)
[2020-08-15 17:00] LABS: BILIRUBIN,URINE Negative (NEGATIVE); COLOR,URINE YELLOW (YELLOW); LEUKOCYTE ESTERASE ,URINE Negative (NEGATIVE); NITRITE, URINE Negative (NEGATIVE); PROTEIN,URINE Trace mg/dl (NEGATIVE); UGLUCOSE Negative (NEGATIVE); UROBILINOGEN,URINE 0.2 EU/dL (0.2)
[2020-08-15] MEDS ORDERED: LORAZEPAM INJ 2 MG/ML VIAL IV ONE ×2 (17:00→18:00)
[2020-08-15] MEDS ORDERED: IV NS 0.9% 1,000 ML BAG IV ONE (17:00)
[2020-08-15] MEDS ORDERED: TRAZ-257 MT (17:03)
[2020-08-15] MEDS ORDERED: BUSP15TA3 PO (17:03)
[2020-08-15] MEDS ORDERED: VENL150C58 PO (17:03)
[2020-08-15 17:11] LABS: CREATININE 0.9 mg/dL (0.6-1.3); POTASSIUM 3.4 mmol/L (3.5-5.1)
--- NOTE | 2020-08-15 17:12 | NUR ---
IV access inserted on right hand #20.
[2020-08-15 17:15] LABS: ACETAMINOPHEN < 2 ug/ml (10-30)
[2020-08-15 17:16] LABS: ALBUMIN 3.4 g/dL (3.4-5.0); BILIRUBIN,DIRECT 0.3 mg/dL (0.0-0.2); BILIRUBIN,TOTAL 0.9 mg/dL (0.2-1.0); TOTAL PROTEIN, SERUM 7.1 g/dL (6.4-8.2)
[2020-08-15 17:21] LABS: BACTERIA,URINE Rare /HPF (None Seen); SQUAMOUS EPITHELIAL CELL,UR Few /HPF (None Seen); WBC,URINE NONE SEEN /HPF (0-3)
--- NOTE | 2020-08-15 17:40 | NUR ---
CALLED CORBIN (PT ) NOTIFIED OF VISIT
--- NOTE | 2020-08-15 18:46 | NUR ---
jack sent to lab.
[2020-08-15 19:57] LABS: OCCULT BLOOD STOOL NEGATIVE (NEGATIVE)
--- NOTE | 2020-08-15 20:45 | NUR ---
SPOKE TO PT'S (PT GAVE CONSENT TO SHARE INFORMATION WITH .) PT'S AWARE OF PLAN OF CARE.
[2020-08-15] MEDS ORDERED: POTASSIUM CHLORIDE 20 MEQ TAB.PRT.SR PO ONE ×2 (21:00→21:03)
[2020-08-15] MEDS ORDERED: CHLORDIAZEPOXIDE HCL 25 MG CAPSULE ONE (21:03)
[2020-08-15] MEDS ORDERED: CHLORDIAZEPOXIDE HCL 25 MG CAPSULE PO ONE (21:30)
[2020-08-15] MEDS ORDERED: CHLO25CA22 PO (23:16)
[2020-08-16 02:24] LABS: CALCIUM, SERUM 8.6 mg/dL (8.5-10.1); CREATININE 0.8 mg/dL (0.6-1.3); POTASSIUM 3.8 mmol/L (3.5-5.1)
--- NOTE | 2020-08-16 02:37 | NUR ---
FAXED RECENT VS AND BMP RESULTS TO [facility].
--- NOTE | 2020-08-16 03:17 | NUR ---
call from [facility] intake: pt got accepted at [facility] by dr bear. # for report: [phone]
--- NOTE | 2020-08-16 03:40 | NUR ---
CALLED CALL THE CAR FOR TRANSPORTATION. [facility] #[phone]
[2020-08-16 04:02] VITALS: BP 127/82
--- NOTE | 2020-08-16 04:18 | NUR ---
REPORT GIVEN TO EMBER HOYT AT [place], CALL BACK NUMBER IS [phone] EXT. [phone]
== END 2020-08-16 05:18 ==
LOC: ER 16:35
DX: F10.239 Alcohol dependence with withdrawal, unspecified (principal); Y90.1 Blood alcohol level of 20-39 mg/100 ml; R45.851 Suicidal ideations; I10 Essential (primary) hypertension; Z20.822 Contact with and (suspected) exposure to COVID-19; E87.1 Hypo-osmolality and hyponatremia; E87.6 Hypokalemia; Z59.0 Homelessness
CPT/HCPCS: 36415 ×2; 80048 ×2; 80076; 80143; 80307; 80320; 81001; 82272; 83735; 85025; 87426; 96361; 96374; 96376; 99291; C9803; J2060 ×2; G0480